=== PATIENT | male | born 1970 | race Caucasian/White ===

== ENCOUNTER → 2016-07-20 | Outpatient (CLI) | payer OTHER ==
[~2016-07-20] MED LIST: FLEXERIL PO; NAPROXEN PO; ROBAXIN500 MG PO; VOLTAREN75 MG PO
--- NOTE | ~2016-07-20 | CR63 ---
[facility] A Service of [facility] & [facility] RADIOLOGY TEXT RESULTS PATIENT: KYUNG REID LOCATION: [facility] : [birth year] UNIT #: [id number] AGE: [address]: Lena Graham APRN SEX: M ORDER DR: [id number] [facility] [address] [place], [place] [address] [id number] O MR#: [id number] Acc #: [id number] NAME: KYUNG REID : 1970 SEX: M STUDY DATE/TIME: 07/20/2016 16:01 UNIT: [facility] ROOM: STUDY DESCRIPTION: CR Chest 2 View Attending Physician: Lena Graham A.P.R.N. Referring Physician: Lena Graham A.P.R.N. Ordering Physician: Lena Graham A.P.R.N. Primary Care Physician: Riki Maurice M.D. MEDICAL IMAGING REPORT This report is preliminary unless electronic signature is present EXAM Two-view chest 07/20/2016 HISTORY 45-year-old male with shortness of air for 1 year, worsening over last 2 months. COMPARISON None FINDINGS 2 views of the chest demonstrate clear lungs. No pleural effusion or pneumothorax. Heart size and mediastinum normal. Pulmonary vasculature normal. IMPRESSION No acute cardiopulmonary findings. Dictated by... Silvano Bedoya M.D. THIS IS AN ELECTRONICALLY VERIFIED REPORT Silvano Bedoya M.D. at 07/21/2016 9:06 AM CURT/kalyan TD: 07/20/2016 21:07 JOB #: [id number] MEDICAL IMAGING REPORT Page 1 of 1 COPY
== END | disposition home or self-care (01) ==
LOC: CRAD 15:44
DX: R06.02 Shortness of breath (principal)
CPT/HCPCS: 71020

== ENCOUNTER 2016-09-03 21:33 | Emergency (ER) | payer OTHER | END 2016-09-03 23:22 | disposition home or self-care (01) | LOC: CED 21:33 → CFTX 21:33 | DX: L02.11 Cutaneous abscess of neck (principal); F17.200 Nicotine dependence, unspecified, uncomplicated; Z88.0 Allergy status to penicillin | CPT/HCPCS: 99282 ==

== ENCOUNTER → 2016-09-08 | Outpatient (CLI) | payer OTHER ==
--- NOTE | ~2016-09-08 | CR170 ---
[facility] A Service of [facility] & [facility] RADIOLOGY TEXT RESULTS PATIENT: KYUNG REID LOCATION: [facility] : [birth year] UNIT #: [id number] AGE: [address]: John Doctor NOT IN SYSTEM SEX: M ORDER DR: [id number] [facility] [address] [place], [place] [address] [id number] O MR#: [id number] Acc #: [id number] NAME: KYUNG REID : 1970 SEX: M STUDY DATE/TIME: 09/08/2016 15:58 UNIT: [facility] ROOM: STUDY DESCRIPTION: CR Knee 2 Views Rt Ordering Physician: Physician Non-Staff Primary Care Physician: Riki Maurice M.D. MEDICAL IMAGING REPORT This report is preliminary unless electronic signature is present EXAM Right knee 2 views 09/08/2016 HISTORY Right knee pain for 1 year medially with decreased range of motion. No known injury. FINDINGS 2 views of the right knee demonstrate no fracture. The joint space is normally maintained. There is degenerative change with small osteophytes extending off the medial and lateral aspects of the tibial plateau and the posterior aspect of the patella. There is no joint effusion. IMPRESSION Mild degenerative change about the right knee. No acute abnormality. Dictated by... Chaka Clark M.D. THIS IS AN ELECTRONICALLY VERIFIED REPORT Chaka Clark M.D. at 09/09/2016 2:18 PM KRT/pcl TD: 09/08/2016 22:37 JOB #: [id number] MEDICAL IMAGING REPORT Page 1 of 1 COPY
--- NOTE | ~2016-09-08 | CR169 ---
[facility] A Service of [facility] & [facility] RADIOLOGY TEXT RESULTS PATIENT: KYUNG REID LOCATION: [facility] : [birth year] UNIT #: [id number] AGE: [address]: John Doctor NOT IN SYSTEM SEX: M ORDER DR: [id number] [facility] [address] [place], [place] [address] [id number] O MR#: [id number] Acc #: [id number] NAME: KYUNG REID : 1970 SEX: M STUDY DATE/TIME: 09/08/2016 15:55 UNIT: [facility] ROOM: STUDY DESCRIPTION: CR Knee 2 Views Lt Ordering Physician: Physician Non-Staff Primary Care Physician: Riki Maurice M.D. MEDICAL IMAGING REPORT This report is preliminary unless electronic signature is present EXAM Left knee 2 views 09/08/2016 HISTORY Left knee pain medially for 1 year with no known injury. FINDINGS 3 views of the left knee demonstrate no fracture. Small osteophytes extend off the femoral condyles, the tibial plateau and the posterior aspect of the patella. The joint space is normally maintained. There is no joint effusion. IMPRESSION Mild degenerative change about the left knee. No acute abnormality. Dictated by... Chaka Clark M.D. THIS IS AN ELECTRONICALLY VERIFIED REPORT Chaka Clark M.D. at 09/09/2016 2:18 PM KRT/pcl TD: 09/08/2016 22:36 JOB #: [id number] MEDICAL IMAGING REPORT Page 1 of 1 COPY
--- NOTE | ~2016-09-08 | CR58 ---
[facility] A Service of [facility] RADIOLOGY TEXT RESULTS PATIENT: KYUNG REID LOCATION: [facility] : 68 UNIT #: [id number] AGE: [address]: John Doctor NOT IN SYSTEM SEX: M ORDER DR: [id number] [facility] [address] [place], [place] [address] [id number] O MR#: [id number] Acc #: [id number] NAME: KYUNG REID : 1970 SEX: M STUDY DATE/TIME: 09/08/2016 15:49 UNIT: [facility] ROOM: STUDY DESCRIPTION: CR Cervical Spine 2 or 3 Views Attending Physician: John Doctor Referring Physician: Generic Doctor Ordering Physician: Staff Doctor Not On Primary Care Physician: Riki Maurice M.D. MEDICAL IMAGING REPORT This report is preliminary unless electronic signature is present EXAM Cervical spine, 3 views; 09/08/2016. HISTORY Cervicalgia, neck pain for 1 year and decreased range of motion. No known injury. FINDINGS Three lateral views of the cervical spine were obtained in the neutral position as well as in flexion and extension. There is no anterolisthesis or retrolisthesis on flexion and extension. There is mild disc space narrowing from C3-4 through C6-7. Small anterior osteophytes are seen at C5 and C6, and there is degenerative change involving the articular facets. There is no retropharyngeal soft tissue swelling. Dictated by... Chaka Clark M.D. THIS IS AN ELECTRONICALLY VERIFIED REPORT Chaka Clark M.D. at 09/09/2016 2:18 PM SHANIQUA/kurt TD: 09/08/2016 22:38 JOB #: [id number] MEDICAL IMAGING REPORT Page 1 of 1 COPY
== END | disposition home or self-care (01) ==
LOC: CRAD 15:27
DX: M54.2 Cervicalgia (principal); M17.0 Bilateral primary osteoarthritis of knee
CPT/HCPCS: 72040; 73560

== ENCOUNTER 2016-09-28 09:47 | Emergency (ER) | payer OTHER ==
[~2016-09-28] VITALS: Ht 182.9 cm; Wt 117.9 kg
== END 2016-09-28 10:45 | disposition home or self-care (01) ==
LOC: CFTX 09:47 → CED 09:47 → CFTX 10:35
DX: L03.312 Cellulitis of back [any part except buttock and flank] (principal); R20.9 Unspecified disturbances of skin sensation; R03.0 Elevated blood-pressure reading, without diagnosis of hypertension; K21.9 Gastro-esophageal reflux disease without esophagitis; F17.210 Nicotine dependence, cigarettes, uncomplicated; Z88.0 Allergy status to penicillin; Z79.899 Other long term (current) drug therapy
CPT/HCPCS: 99283